=== PATIENT | female | born 1960 | race Caucasian/White ===

== ENCOUNTER 2018-05-14 11:22 | Inpatient (IN) | payer OTHER ==
[~2018-05-14] VITALS: Ht 165.1 cm; Wt 55.1 kg
[2018-05-14 11:58] LABS: BASOPHIL % 0.3 % (0-2); PLATELET COUNT 177 x10^3mcL (130-400)
[2018-05-14 12:00] LABS: RED CELL DISTRIBUTION WIDTH 20.5 % (11.5-14.5)
[2018-05-14 12:12] VITALS: Ht 165.1 cm; Wt 55.1 kg
[2018-05-14 12:12] LABS: CALCIUM 8.5 mg/dL (8.5-10.1); CARBON DIOXIDE 20.9 mmol/L (21-32); CREATININE SERUM 1.2 mg/dL (0.6-1.0)
[2018-05-14 12:13] LABS: POTASSIUM SERUM 2.9 mmol/L (3.5-5.1)
[2018-05-14 12:26] LABS: rbc morphology (normal/abnorm) ABNORMAL (NORMAL)
[2018-05-14 13:45] LABS: AMPHETAMINE QUAL UR NONE DETECTED (See below)
[2018-05-14 16:35] LABS: UA SPECIFIC GRAVITY 1.025 (1.005-1.035); microscopic required? YES; urine erythrocyte NEGATIVE (NEGATIVE)
[2018-05-14 16:54] LABS: PHOSPHOROUS 5.1 mg/dL (2.5-4.9)
[2018-05-14 16:57] LABS: CHOLESTEROL/HDL RATIO 2.3
[2018-05-14 17:00] LABS: T3 TOTAL 0.97 ng/mL
[2018-05-14 17:01] LABS: FREE T4 0.86 ng/dL (0.76-1.46)
[2018-05-14] MEDS ORDERED: FERROUS SULFAT325 M2 PO (17:05)
[2018-05-14] MEDS ORDERED: DEPAKOTE ER500 MG PO (17:07)
[2018-05-14] MEDS ORDERED: MI-ACID GAS REL80 MG PO (17:09)
[2018-05-14 17:29] LABS: CALCIUM 8.2 mg/dL (8.5-10.1); CHLORIDE SERUM 105 mmol/L (98-107); CREATININE SERUM 0.7 mg/dL (0.6-1.0); GFR1 > 60 mL/min; GLUCOSE SERUM 120 mg/dL (74-106); POTASSIUM SERUM 3.7 mmol/L (3.5-5.1); SODIUM SERUM 142 mmol/L (136-145)
[2018-05-14 18:05] VITALS: BP 140/67
[2018-05-14 20:52] VITALS: BP 143/71
[2018-05-14 22:22] LABS: CALCIUM 8.1 mg/dL (8.5-10.1); CHLORIDE SERUM 104 mmol/L (98-107); CREATININE SERUM 0.6 mg/dL (0.6-1.0); GFR1 > 60 mL/min; GLUCOSE SERUM 126 mg/dL (74-106); SODIUM SERUM 138 mmol/L (136-145)
[2018-05-15 06:01] VITALS: BP 114/62
[2018-05-15 06:26] LABS: CALCIUM 8.2 mg/dL (8.5-10.1); CARBON DIOXIDE 31.9 mmol/L (21-32); CHLORIDE SERUM 106 mmol/L (98-107); CREATININE SERUM 0.6 mg/dL (0.6-1.0); GFR1 > 60 mL/min; GLUCOSE SERUM 103 mg/dL (74-106); MAGNESIUM 1.4 mg/dL (1.8-2.4); PHOSPHOROUS 4.2 mg/dL (2.5-4.9); POTASSIUM SERUM 4.1 mmol/L (3.5-5.1); SODIUM SERUM 142 mmol/L (136-145)
[2018-05-15 06:38] LABS: BASOPHIL % 0.5 % (0-2)
[2018-05-15 06:42] LABS: PLATELET COUNT 117 x10^3mcL (130-400); RED CELL DISTRIBUTION WIDTH 19.2 % (11.5-14.5)
[2018-05-15 08:54] VITALS: BP 115/66
[2018-05-15 12:00] VITALS: BP 116/62
[2018-05-15 16:43] VITALS: BP 108/59
[2018-05-15 20:38] VITALS: BP 131/78
[2018-05-16 05:50] VITALS: BP 97/60
[2018-05-16 06:37] LABS: BASOPHIL % 0.4 % (0-2)
[2018-05-16 06:54] LABS: PLATELET COUNT 117 x10^3mcL (130-400); RED CELL DISTRIBUTION WIDTH 18.2 % (11.5-14.5)
[2018-05-16 06:55] LABS: CALCIUM 7.9 mg/dL (8.5-10.1); CARBON DIOXIDE 31.6 mmol/L (21-32); CHLORIDE SERUM 110 mmol/L (98-107); CREATININE SERUM 0.7 mg/dL (0.6-1.0); GFR1 > 60 mL/min; GLUCOSE SERUM 71 mg/dL (74-106); MAGNESIUM 1.9 mg/dL (1.8-2.4); PHOSPHOROUS 4.3 mg/dL (2.5-4.9); POTASSIUM SERUM 3.6 mmol/L (3.5-5.1); SODIUM SERUM 143 mmol/L (136-145)
[2018-05-16 09:50] VITALS: BP 145/68
[2018-05-16 14:06] VITALS: BP 121/61
[2018-05-16 17:46] VITALS: BP 132/51
[2018-05-16 20:57] VITALS: BP 120/54
[2018-05-17 05:35] VITALS: BP 140/68
[2018-05-17 06:13] LABS: BASOPHIL % 0.3 % (0-2); PLATELET COUNT 133 x10^3mcL (130-400)
[2018-05-17 06:17] LABS: CALCIUM 8.2 mg/dL (8.5-10.1); CARBON DIOXIDE 30.4 mmol/L (21-32); CHLORIDE SERUM 108 mmol/L (98-107); CREATININE SERUM 0.8 mg/dL (0.6-1.0); GFR1 > 60 mL/min; GLUCOSE SERUM 77 mg/dL (74-106); MAGNESIUM 1.7 mg/dL (1.8-2.4); PHOSPHOROUS 3.6 mg/dL (2.5-4.9); POTASSIUM SERUM 3.6 mmol/L (3.5-5.1); SODIUM SERUM 141 mmol/L (136-145)
[2018-05-17 06:39] LABS: RED CELL DISTRIBUTION WIDTH 18.6 % (11.5-14.5)
[2018-05-17 08:57] VITALS: BP 132/57
[2018-05-17] MEDS ORDERED: KEPPRA1000 M1 PO (09:52)
[2018-05-17 10:33] VITALS: BP 132/57
== END 2018-05-17 14:52 | disposition home or self-care (01) | DRG 100 ==
LOC: ED 11:22 → DU 15:36
PROVIDERS: Emergency Medicine; Family Medicine
DX: G40.901 Epilepsy, unspecified, not intractable, with status epilepticus (principal); N17.0 Acute kidney failure with tubular necrosis; E87.0 Hyperosmolality and hypernatremia; Z68.1 Body mass index [BMI] 19.9 or less, adult; E87.6 Hypokalemia; E83.42 Hypomagnesemia; R80.9 Proteinuria, unspecified; I10 Essential (primary) hypertension
CPT/HCPCS: 82542; 83880; 84439; 92610; 97110-GP; 97116-GP; 97530-GP; 97535-GP; J1953; J2060; J3475; J3480; J7030; Q0092